=== PATIENT | female | born 1955 | race Two or more races ===

== ENCOUNTER → 2021-05-12 08:00 | Outpatient (CLI) | payer OTHER ==
[~2021-05-12] VITALS: Ht 147.3 cm; Wt 102.1 kg
== END | disposition home or self-care (01) ==
LOC: LAB 08:00 → SURH 05-19 10:45 → EDSTATUS 05-19 10:45
PROVIDERS: ATTEND Surgery
DX: D12.4 Benign neoplasm of descending colon (principal); I10 Essential (primary) hypertension

== ENCOUNTER → 2021-06-15 | Outpatient (CLI) | payer OTHER | END | disposition home or self-care (01) | LOC: NUCLEAR 07:48 | PROVIDERS: ATTEND Internal Medicine | DX: R07.89 Other chest pain (principal) | CPT/HCPCS: 78452; 93017; A9500; J0153 ==

== ENCOUNTER 2021-07-15 10:20 | Inpatient (IN) | payer OTHER ==
[~2021-07-15] VITALS: Ht 147.3 cm; Wt 102.1 kg
[2021-07-25] MEDS ORDERED: INTESTINEX680 M1 PO (11:35)
[2021-07-25] MEDS ORDERED: ONDANSETRON ODT8 MG PO (11:35)
[2021-07-25] MEDS ORDERED: NEXIUM 24HR20 M1 PO (11:35)
[2021-07-25] MEDS ORDERED: ULTRAM50 MG PO (11:36)
== END 2021-07-25 14:30 | disposition home or self-care (01) | DRG 330 ==
LOC: SURH 07-19 09:53 → O/R 07-19 09:53 → SURH 07-19 10:45
PROVIDERS: ADMIT Surgery; ATTEND Surgery
PROC: 0DBL4ZZ Excision of Transverse Colon, Percutaneous Endoscopic Approach (ICD-10-PCS; 2021-07-19)
PROC: 07BC3ZX Excision of Pelvis Lymphatic, Percutaneous Approach, Diagnostic (ICD-10-PCS; 2021-07-19)
PROC: 0DJD8ZZ Inspection of Lower Intestinal Tract, Via Natural or Artificial Opening Endoscopic (ICD-10-PCS; 2021-07-19)
PROC: 3E0F7SF Introduction of Other Gas into Respiratory Tract, Via Natural or Artificial Opening (ICD-10-PCS; 2021-07-19)
PROC: 0DBM4ZZ Excision of Descending Colon, Percutaneous Endoscopic Approach (ICD-10-PCS; principal; 2021-07-19 17:45)
DX: D12.4 Benign neoplasm of descending colon (principal); K91.89 Other postprocedural complications and disorders of digestive system; K56.7 Ileus, unspecified; Y83.8 Other surgical procedures as the cause of abnormal reaction of the patient, or of later complication, without mention of misadventure at the time of the procedure; Y92.230 Patient room in hospital as the place of occurrence of the external cause

== ENCOUNTER 2021-11-15 06:53 | Inpatient (IN) | payer OTHER ==
[~2021-11-15] VITALS: Ht 147.3 cm; Wt 89.8 kg
[~2021-11-15 06:53] MED LIST: INTESTINEX680 M1 PO; NEXIUM 24HR20 M1 PO; ONDANSETRON ODT8 MG PO; ULTRAM50 MG PO
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
[2021-11-24] MEDS ORDERED: JUVEN PACKET1 EAC1 PO (10:01)
[2021-11-24] MEDS ORDERED: INTESTINEX680 M1 PO (10:01)
== END 2021-11-24 15:13 | disposition home or self-care (01) | DRG 603 ==
LOC: ER 06:53 → SEC-K 10:22 → SURG 10:22 → O/R 15:23 → SURG 19:29
PROVIDERS: ADMIT Surgery; ATTEND Surgery
PROC: 0W9F30Z Drainage of Abdominal Wall with Drainage Device, Percutaneous Approach (ICD-10-PCS; principal; 2021-11-15 12:15)
PROC: 0DJD8ZZ Inspection of Lower Intestinal Tract, Via Natural or Artificial Opening Endoscopic (ICD-10-PCS; 2021-11-24)
DX: L02.211 Cutaneous abscess of abdominal wall (principal); R10.9 Unspecified abdominal pain; K63.5 Polyp of colon; Z20.822 Contact with and (suspected) exposure to COVID-19